=== PATIENT | female | born 1975 | race Two or more races ===

== ENCOUNTER 2019-10-11 11:59 | Emergency (ER) | payer OTHER ==
[2019-10-11 12:26] VITALS: BP 106/62; PULSE 80; TEMP 98.2; BMI 29.0
[2019-10-11] MEDS ORDERED: IBUPROFEN 400 MG TABLET (FP) PO ONE ×2 (12:35→12:36)
--- NOTE | 2019-10-11 12:44 | PDOC ---
History of Present Illness - General Chief Complaint: Pain Stated Complaint: RT ARM MIDDLE FINGER INJURY Time Seen by Provider: 10/11/19 12:29 History Source: Patient - History of Present Illness Occurred: reports: other Upper Extremity Pain Location: right: 3rd finger Past History - Past Medical History Allergies/Adverse Reactions: Allergies Allergy/AdvReac Type Severity Reaction Status Date / Time No Known Allergies Allergy Verified 10/11/19 12:21 Home Medications: Ambulatory Orders Ibuprofen [Motrin -] 800 mg PO Q6H #30 tablet 10/11/19 Asthma: Yes COPD: No - Psycho Social/Smoking Cessation Hx Smoking History: Current every day smoker Number of Cigarettes Smoked Daily: 10 Information on smoking cessation initiated: Yes Hx Alcohol Use: No Drug/Substance Use Hx: Yes (Jacey) Review of Systems - Review of Systems Musculoskeletal: Yes: Joint Pain, Joint Swelling Neurological: No: Numbness, Tingling, Weakness *Physical Exam - Vital Signs Last Vital Signs Temp Pulse Resp BP Pulse Ox 98.2 F 80 20 106/62 99 10/11/19 12:22 10/11/19 12:22 10/11/19 12:22 10/11/19 12:22 10/11/19 12:22 - Physical Exam General Appearance: Yes: Appropriately Dressed. No: Apparent Distress HEENT: positive: Normal Voice Neck: positive: Supple Respiratory/Chest: negative: Respiratory Distress Extremity: positive: Other (minimal swelling to R 3rd digit diffusely w/ flexion deformity at PIPJ w/ sig ttp, sensation intact, pulses intact) Integumentary: positive: Dry, Warm Neurologic: positive: Fully Oriented, Alert, Normal Mood/Affect Medical Decision Making - Medical Decision Making 10/11/19 12:45 44-year-old female here with R hand pain. Patient states several months ago her hand accidentally got caught in a wooden door. Had negative x-ray at the time and states since then has had pain mostly to R 3rd digit with inability w/ increasing LROM to finger.. Did not go back to see her doctor and has not been evaluated by hand specialist for unclear reasons. Pain has gradually worsened and now w/ limited function as patient complaining of being unable to put her R hand in her pocket and hardly able to wipe herself. No numbness or tingling. 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 digit, m/l 2/2 tendon injury s/p crush of R hand w/ neg XR then per pt Lost to f/u since -dc w/ pain control and hand f/u Discharge - Discharge Information Problems reviewed: Yes Clinical Impression/Diagnosis: Tendon injury Finger pain Qualifiers: Laterality: right Qualified Code(s): M79.644 - Pain in right finger(s) Condition: Stable Disposition: HOME - Additional Discharge Information Prescriptions: Ibuprofen [Motrin -] 800 mg PO Q6H #30 tablet - Follow up/Referral Referrals: Naman Sandoval DO [Staff Physician] - - Patient Discharge Instructions Additional Instructions: It appears that you may have a tendon injury. Please follow-up with Dr. Sandoval of orthopedics this week for further evaluation - Post Discharge Activity
== END 2019-10-11 13:01 | disposition home or self-care (01) ==
LOC: JERFT 11:59 → EDBD 11:59 → JERFT 13:01
DX: M79.644 Pain in right finger(s) (principal)
CPT/HCPCS: 99282-25

== ENCOUNTER 2020-04-03 08:28 | Day surgery (SDC) | payer OTHER ==
[2020-04-03 08:47] VITALS: BMI 33.3
[2020-04-03] MEDS ORDERED: MIDAZOLAM HCL 2 MG/2 ML SINGLE DOSE VIAL ONE (08:50)
[2020-04-03] MEDS ORDERED: PROPOFOL 20 ML ONE (09:56)
[2020-04-03] MEDS ORDERED: LIDOCAINE HCL 2% (50ML VIAL) SQ ONE (10:01)
[2020-04-03] MEDS ORDERED: oxyCODONE HCL 5 MG TABLET PO PRN (10:01)
--- NOTE | 2020-04-03 10:49 | OP ---
DATE OF OPERATION: 04/03/2020 PREOPERATIVE DIAGNOSIS: Right long trigger finger. POSTOPERATIVE DIAGNOSIS: Right long trigger finger. OPERATIVE PROCEDURE: Right long trigger finger release. SURGEON: Dannie Samayoa MD ANESTHESIA: Local with sedation. COMPLICATIONS: None. ESTIMATED BLOOD LOSS: Minimal. INDICATION FOR PROCEDURE: The patient presented with the above finding indicated for operative treatment. Risks, benefits, alternatives were discussed with the patient at length. Proper informed consent was obtained. PROCEDURE: After proper identification of the patient and the correct operative site patient brought to the operating room and placed supine on the operating table, all bony prominences well padded. Sedation and local anesthesia were given. Right upper extremity was prepped and draped in the usual sterile fashion. Well-padded tourniquet was placed over the sterile prep. Esmarch bandaged used to exsanguinate the right upper extremity. Tourniquet was inflated to 250 mmHg. Longitudinal incision made over the A1 qi of the long finger. Incision was taken sharply through the skin, with blunt and sharp dissection through subcutaneous tissue. A1 qi was identified and divided longitudinally. Patient was asked to flex and extend the finger and no further triggering was noted. Wound was irrigated and closed with 5-0 fast-absorbing plain gut suture. Sterile dressing was applied and patient brought to the recovery room in stable condition. She tolerated procedure well. DANNIE SAMAYOA M.D. [id number]
[2020-04-03 11:32] VITALS: TEMP 98.1
[2020-04-03 13:33] VITALS: BP 130/88; PULSE 76
== END 2020-04-03 11:00 | disposition home or self-care (01) ==
LOC: FASU 08:28
PROVIDERS: ATTEND Orthopaedic Surgery Hand Surgery
PROC: 0LN70ZZ Release Right Hand Tendon, Open Approach (ICD-10-PCS; principal; 2020-04-03 10:01)
DX: M65.331 Trigger finger, right middle finger (principal)
CPT/HCPCS: 84703

== ENCOUNTER 2023-02-02 13:34 | Emergency (ER) | payer OTHER ==
[2023-02-02 13:49] VITALS: BP 133/67; PULSE 63; RESP 18; TEMP 98.1; BMI 30.7
[2023-02-02] MEDS ORDERED: ACETAMINOPHEN 500 MG TABLET (FP) PO ONE (14:51)
[2023-02-02] MEDS ORDERED: LIDOCAINE 5% TOPICAL PATCH TP ONE (14:51)
[2023-02-02] MEDS ORDERED: CYCLOBENZAPRINE HCL 10 MG TABLET (FP) PO ONE (14:51)
[2023-02-02] MEDS ORDERED: KETOROLAC TROMETHAMINE 30 MG/1 ML VIAL IM ONE (14:51)
[2023-02-02] MEDS ORDERED: CYCLOBENZAPRINE HCL 10 MG TABLET (FP) ONE (14:58)
[2023-02-02] MEDS ORDERED: ACETAMINOPHEN 500 MG TABLET (FP) ONE (14:58)
[2023-02-02] MEDS ORDERED: KETOROLAC TROMETHAMINE 30 MG/1 ML VIAL ONE (14:58)
[2023-02-02] MEDS ORDERED: LIDOCAINE PATCH REMOVAL MC SCH (22:00)
== END 2023-02-02 15:54 | disposition home or self-care (01) ==
LOC: JERFT 13:34 → JER 13:34 → JERFT 15:54
PROC: 3E0233Z Introduction of Anti-inflammatory into Muscle, Percutaneous Approach (ICD-10-PCS; principal; 2023-02-02)
DX: M25.552 Pain in left hip (principal); M54.42 Lumbago with sciatica, left side; W06.XXXA Fall from bed, initial encounter
CPT/HCPCS: 73502-TC-LT-FY; 99284-25

== ENCOUNTER 2023-05-04 16:43 | Emergency (ER) | payer OTHER ==
[2023-05-04 17:09] VITALS: RESP 20; TEMP 98.1; BMI 29.2
[2023-05-04] MEDS ORDERED: METHOCARBAMOL 500 MG TABLET PO ONE (17:53)
[2023-05-04] MEDS ORDERED: ALBUTEROL SO4 2.5/IPRATROPIUM 0.5 INH SOL 3 ML VIAL.NEB. NEB ONE ×2 (17:53→18:59)
[2023-05-04] MEDS ORDERED: KETOROLAC TROMETHAMINE 15 MG/ML VIAL IM ONE (17:53)
[2023-05-04] MEDS ORDERED: METHOCARBAMOL 500 MG TABLET ONE (18:08)
[2023-05-04] MEDS ORDERED: KETOROLAC TROMETHAMINE 30 MG/1 ML VIAL ONE (18:09)
[2023-05-04] MEDS: ALBUTEROL SO4 2.5/IPRATROPIUM 0.5 INH SOL 3 ML VIAL.NEB. NEB SCH ×3 (18:30→19:02)
[2023-05-04 20:31] VITALS: BP 122/65; PULSE 69
== END 2023-05-04 20:35 | disposition home or self-care (01) ==
LOC: JERFT 16:43
PROC: 3E0233Z Introduction of Anti-inflammatory into Muscle, Percutaneous Approach (ICD-10-PCS; principal; 2023-05-04)
PROC: 3E0F7GC Introduction of Other Therapeutic Substance into Respiratory Tract, Via Natural or Artificial Opening (ICD-10-PCS; 2023-05-04)
DX: M54.50 Low back pain, unspecified (principal); M54.6 Pain in thoracic spine; V49.40XA Driver injured in collision with unspecified motor vehicles in traffic accident, initial encounter; Y93.I9 Activity, other involving external motion
CPT/HCPCS: 72128-TC; 72170-TC-FY; 84703; 99285-25

== ENCOUNTER 2023-06-16 13:21 | Emergency (ER) | payer OTHER ==
[2023-06-16 13:45] VITALS: BP 134/78; PULSE 79; RESP 18; TEMP 98.8; BMI 30.1
[2023-06-16] MEDS ORDERED: SODIUM CHLORIDE 0.9% 500 ML INFUS.BAG IV ONE ×2 (14:28→18:08)
[2023-06-16] MEDS ORDERED: ACETAMINOPHEN 1000 MG/100 ML BAG IVPB ONE (14:28)
[2023-06-16] MEDS ORDERED: ONDANSETRON 4 MG/2 ML VIAL IVPUSH ONE (14:28)
[2023-06-16] MEDS ORDERED: ACETAMINOPHEN INJECTION 100 ML IVPB ONE (14:43)
[2023-06-16] MEDS ORDERED: ONDANSETRON 4 MG/2 ML VIAL ONE (14:44)
[2023-06-16 15:08] LABS: BASO % 0.4 % (0-2.0); EOS % 0.1 % (0-4.5); HEMATOCRIT 40.8 % (32.4-45.2); HEMOGLOBIN 13.6 GM/dL (10.7-15.3); LYMPH % 13.8 % (8-40); MCH 29.5 pg (25.7-33.7); MCHC 33.3 g/dl (32.0-36.0); MEAN CELL VOLUME 88.6 fl (80-96); MEAN PLT VOLUME 6.8 fl (7.5-11.1); MONO % 9.2 % (3.8-10.2); NEUT % 76.5 % (42.8-82.8); PLATELET COUNT 379 10^3/uL (134-434); RDW 14.3 % (11.6-15.6); WHITE BLOOD COUNT 6.5 K/mm3 (4.0-10.0)
[2023-06-16 15:41] LABS: POTASSIUM 3.6 mmol/L (3.5-5.1)
[2023-06-16 15:43] LABS: BLOOD UREA NITROGEN 6.9 mg/dL (7-18); CALCIUM 9.5 mg/dL (8.5-10.1)
[2023-06-16 15:44] LABS: ALBUMIN 3.8 g/dl (3.4-5.0)
[2023-06-16 15:47] LABS: CREATININE 0.8 mg/dL (0.55-1.3)
[2023-06-16 15:48] LABS: BILIRUBIN,TOTAL 0.6 mg/dL (0.2-1); TOT PROT 6.9 g/dl (6.4-8.2)
[2023-06-16] MEDS ORDERED: KETOROLAC TROMETHAMINE 30 MG/1 ML VIAL IVPUSH ONE (17:56)
[2023-06-16] MEDS ORDERED: METOCLOPRAMIDE HCL 10 MG TABLET (FP) PO ONE ×2 (17:59→18:52)
[2023-06-16] MEDS ORDERED: FAMOTIDINE 20 MG/50 ML IVPB 20 MG/50 ML MG IVPB ONE ×2 (18:10→18:52)
[2023-06-16] MEDS ORDERED: MAG HYDROX/AL HYDROX/SIMETH 30 ML UNIT-DOSE CUP PO ONE (18:10)
[2023-06-16] MEDS ORDERED: PANTOPRAZOLE SODIUM 40 MG VIAL IVPUSH ONE (18:10)
[2023-06-16] MEDS ORDERED: MAG HYDROX/AL HYDROX/SIMETH 30 ML UNIT-DOSE CUP ONE (18:52)
[2023-06-16] MEDS ORDERED: PANTOPRAZOLE SODIUM 40 MG VIAL ONE (18:52)
[2023-06-16] MEDS ORDERED: KETOROLAC TROMETHAMINE 30 MG/1 ML VIAL ONE (18:52)
== END 2023-06-16 19:20 | disposition left against medical advice (07) ==
LOC: JER 13:21
PROC: 3E033NZ Introduction of Analgesics, Hypnotics, Sedatives into Peripheral Vein, Percutaneous Approach (ICD-10-PCS; principal; 2023-06-16)
PROC: 3E033GC Introduction of Other Therapeutic Substance into Peripheral Vein, Percutaneous Approach (ICD-10-PCS; 2023-06-16)
DX: R10.10 Upper abdominal pain, unspecified (principal); R11.2 Nausea with vomiting, unspecified; R19.7 Diarrhea, unspecified
CPT/HCPCS: 36415; 80053; 83690; 84703; 85025; 99284-25